=== PATIENT | female | born 1965 | race Caucasian/White ===

== ENCOUNTER → 2017-08-27 | Outpatient (CLI) | payer BC ==
[2017-08-27 13:28] LABS: C-REACTIVE PROTEIN < 0.29 mg/dl (0-0.29)
[2017-09-02 09:28] LABS: MICROSOMAL AB 353 IU/ML (<9); T3 REVERSE **TC 90963 35 ng/dL (8-25)
== END | disposition home or self-care (01) ==
LOC: C.LAB 11:41
PROVIDERS: ATTEND Chiropractor
DX: M79.1 Myalgia (principal)